=== PATIENT | female | born 1975 | race Caucasian/White ===

== ENCOUNTER 2017-07-08 13:38 | Emergency (ER) | payer SELFPAY ==
--- NOTE | 2017-07-08 14:15 | EDPHY ---
ED Progress Note Narrative: This patient presented to the emergency department today for a complaint that she had 2 years ago that was very thoroughly worked up. At that time this was an urgent care, the patient has [facility] insurance and would prefer to go to their emergency department or follow up with their doctors because she did not realize it would cost so much to be here since it is no longer in urgent care. I did not perform an examination or evaluation and I did not prescribe anything. I told her that I am more than happy to evaluate her and take care of her.
== END 2017-07-08 14:18 | disposition left against medical advice (07) ==
LOC: CED 13:38
DX: Z53.21 Procedure and treatment not carried out due to patient leaving prior to being seen by health care provider (principal)